=== PATIENT | male | born 2000 | race Caucasian/White ===

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

== ENCOUNTER 2022-04-28 21:31 | Emergency (ER) | payer SELFPAY ==
[2022-04-28 21:37] VITALS: BP 116/67; PULSE 77; RESP 17; TEMP 36.5; O2SAT 97
--- NOTE | 2022-04-28 21:51 | ED.GENADUL_ITS ---
Discharge Plan Disposition Patient Disposition: HOME Condition: Stable Discharge Details Clinical Impression: Rash Primary Care Provider: Unknown,Unknown ED Provider: Isauro Schofield Home Meds and New Rx's Prescriptions: New prednisone 20 mg tablet 60 mg PO DAILY 4 Days Qty: 12 0RF clindamycin HCl 150 mg capsule 450 mg PO TID 7 Days Qty: 63 0RF Continued ibuprofen 200 mg Tablet 400 mg PO QID PRN Discharge Instructions Additional Instructions: You are being treated for a skin infection with clindamycin and to decrease the inflammation you are being prescribed prednisone if not better within 5 days have the rash evaluated again You can take benadryl as needed for itching, follow dosing instructions on packaging. if you feel more ill, have severe worsening pain or fevers return to the emergency department Medical Decision Making 22 yo male with no chronic medical problems comes in with chief complaint of right arm redness and itching starting this morning. He denies any trauma but does state he felt some insect bite him overnight last night. Denies ivdu, Denies fevers, chills, severe pain, states primary symptoms is itching. He has mild erythema of the posterior right hand to proximal forearm that is mildly w arm to touch, blanches and no tenderness or crepitus. Has intact sensation and rom of all joints. Unclear etiology for rash, could be dermatitis but also concern for cellulitis. No fluctuance to suggest abscess and no findings such a severe pain or crepitus to suggest nec fasc. I recommended that we obtain labs and cultures but pt is hesitant to have blood work and wants time to decide. He has decision making capacity and understands why we would want to obtain the labs to screen for serious bacterial illness. labs reassuring against serious bacerial illness, normal wbc crp and esr. Will treat as possible cellulitis though I suspect dermatitis, will start on clindamcyin due to amoxicillin allergy and also prednisone, advised to f/u with pcp if not improving and return precautions given Differential Diagnosis Differential Diagnosis: cellulitis, dermatitis Lab Data Lab results reviewed: Yes I reviewed the patient's lab results. HPI General Mode of arrival: ambulatory . Date/Time Provider Initiated Documentation: 04/28/22 21:40 . Limitations to Documentation: no limitations . Information obtained by: patient . History of Present Illness 22 year old M presents to the emergency department with the chief complaint of right arm redness and itching, described as moderate, Patient started experiencing this hour(s) (12) and it has been constant. No relieving factors improve symptom(s), No exacerbating factors reported . Patient notes no other symptoms.. Patient did receive the following treatments prior to arrival, none Related Data Home Medications Medication Instructions Recorded Confirmed ibuprofen 200 mg tablet 400 mg PO QID PRN 09/22/18 09/22/18 clindamycin HCl 150 mg capsule 450 mg PO TID 7 days #63 caps 04/28/22 prednisone 20 mg tablet 60 mg PO DAILY 4 days #12 tabs 04/28/22 Previous Rx's Medication Instructions Recorded clindamycin HCl 150 mg capsule 450 mg PO TID 7 days #63 caps 04/28/22 prednisone 20 mg tablet 60 mg PO DAILY 4 days #12 tabs 04/28/22 Allergies Allergy/AdvReac Type Severity Reaction Status Date / Time amoxicillin Allergy Intermediate Skin Rash Unverified 04/28/22 21:44 sunscreen AdvReac Mild Hives Uncoded 04/28/22 21:42 General Stated Complaint: Cellulitis LAURA: 3 Review of Systems All systems reviewed & are unremarkable except as noted in HPI and below Constitutional Constitutional: Denies chills, Denies fever(s) and Denies weakness Cardiovascular Cardiovascular: Denies chest pain and Denies dyspnea Respiratory Respiratory: Denies cough and Denies dyspnea Gastrointestinal Gastrointestinal: Denies abdominal pain, Denies nausea and Denies vomiting Musculoskeletal Musculoskeletal: Denies joint swelling Neurologic Neurologic: Denies weakness PFSH All Active Problems (Updated 04/28/22 @ 22:29 by Isauro Schofield MD) Rash (Acute) Medical History (Updated 04/28/22 @ 22:29 by Isauro Schofield MD) Allergy to amoxicillin Smoker in home outside, away from kids Surgical History Circumcision Fracture, Open Treatment (08/21/17) Ring finger- right hand Family History Mother Healthy adult on routine physical examination Father No problems noted. Brother Trisomy 21 Other Heart disease MGM, MGF Social History Smoking/Tobacco Use Status: Never Smoking risk assessment performed?: Yes Alcohol Intake: never Drug use: Never Substance use type: former substance user Do you feel safe at home: Yes Do you feel safe in your relationship?: Yes Exam Const General: no acute distress Orientation: alert HENMT Head: normal to inspection Ears: external ears normal General nose exam: external nose normal Mouth: moist mucous membranes Eyes General: appearance normal, both eyes and all related structures Neck Neck: normal visual inspection Resp Effort & Inspection: normal respiratory effort and able to speak in complete sentences Cardio Rate: regular rate Skin General skin exam: erythema Neuro General: patient alert and patient oriented x3 Extrem General: full ROM and capillary refill normal Psych Mental Status: mental status grossly normal Course Vital Signs Vital signs: Vital Signs Temperature 36.5 C 04/28/22 21:37 Pulse 77 04/28/22 21:37 Respiratory Rate 17 04/28/22 21:37 Blood Pressure 116/67 04/28/22 21:37 Pulse Oximetry 97 04/28/22 21:37 Temperature 36.5 C 04/28/22 21:37 Temperature Source Skin 04/28/22 21:37 Pulse 77 04/28/22 21:37 Respiratory Rate 17 04/28/22 21:37 Blood Pressure 116/67 04/28/22 21:37 Blood Pressure Position Sitting 04/28/22 21:37 Pulse Oximetry 97 04/28/22 21:37 Oxygen Delivery Method Room Air 04/28/22 21:37 Oxygen Flow Rate 0 04/28/22 21:37 Pain Level 7 04/28/22 21:37
[2022-04-28 22:16] LABS: Abs Immature Grans 0.02 10^3/uL (0.0-0.06); Absolute Basophil Count 0.03 10^3/uL (0.0-0.2); Absolute Lymphocyte Count 2.13 10^3/uL (1.2-3.4); Absolute Monocyte Count 0.71 10^3/uL (0.1-0.8); Absolute Neutrophil Count 4.86 10^3/uL (1.2-6.7); Basophils % 0.4; Eosinophils % 2.5; HCT 42.1 % (40.0-50.0); HGB 14.3 g/dL (13.5-17.5); Immature Grans % 0.3; Lymphocytes % 26.8; MCH 28.7 pg (27.0-33.0); MCV 85 fL (80-95); MPV 9.6 fL (8.0-11.0); Monocytes % 8.9; Neutrophils % 61.1; Platelet Count 241 10^3/uL (130-400); RBC 4.98 10^6/uL (4.36-5.78); RDW 11.5 % (11.8-14.1); RDW-SD 35.1 fL; WBC 7.95 10^3/uL (4.4-10.8)
[2022-04-28 22:20] LABS: ESR 1 mm/hr (0-15)
[2022-04-28 22:31] LABS: ALT 30 U/L (16-63); AST 16 U/L (15-37); Albumin 4.2 g/dL (3.4-5.0); Alkaline Phosphatase 84 U/L (46-116); Anion Gap 10.9 mmol/L (3-11); BUN 17 mg/dL (7-18); Bilirubin, Total 0.5 mg/dL (0.2-1.0); C-Reactive Protein 0.14 mg/dL (0.0-0.3); CO2 24.1 mmol/L (21.0-32.0); CREATININE 0.8 mg/dL (0.70-1.30); Calcium 8.8 mg/dL (8.5-10.1); Chloride 105 mmol/L (98-107); Glucose 123 mg/dL (74-106); Potassium 3.4 mmol/L (3.5-5.1); Sodium 140 mmol/L (136-145); Total Protein 7.4 g/dL (6.4-8.2)
[2022-04-28] MEDS: predniSONE 20 MG TAB 60 MG PO (22:58)
[2022-04-28] MEDS: Clindamycin 150 MG CAP 450 MG PO (22:58)
== END 2022-04-28 22:57 | disposition home or self-care (01) ==
PROVIDERS: Emergency Provider Emergency Medicine
DX: R21 Rash and other nonspecific skin eruption (principal)
CPT/HCPCS: 80053; 85652; 99283; 85025; 86140; J7512

== ENCOUNTER 2023-03-17 15:47 | Emergency (ER) | payer OTHER, SELFPAY ==
--- NOTE | 2023-03-17 15:45 | DI.RAD_ITS ---
Exam(s) XR FINGER RT LITTLE EXAM: XR FINGER RT LITTLE CLINICAL HISTORY: pain s/p hitting it in football. TECHNIQUE: 2D digital imaging was performed. COMPARISON: No exams were available for comparison FINDINGS: 3 views There is a fracture at the midshaft level of the distal phalanx of the 5th finger. There is mild vol ar angulation of the distal fragment. No other fractures identified. No radiopaque foreign body. N o osseous lesions. IMPRESSION: Fracture in the distal phalanx with mild volar angulation of the distal fragment. DATA REPOSITORY: RADIATION DOSE DELIVERED:
[2023-03-17 15:48] VITALS: BP 122/80; PULSE 80; RESP 18; TEMP 36.8; O2SAT 99
--- NOTE | 2023-03-17 16:03 | ED.GENADUL_ITS ---
Discharge Plan Disposition Patient Disposition: Home Condition: Stable Discharge Details Clinical Impression: Fracture of phalanx of right little finger Primary Care Provider: Unknown,Unknown ED Provider: Isauro Schofield Home Meds and New Rx's Prescriptions: New cephalexin 500 mg tablet 500 mg PO TID 5 Days Qty: 15 0RF Continued ibuprofen 200 mg Tablet 400 mg PO QID PRN Discharge Instructions Instructions: Finger Fracture (ED) Additional Instructions: call orthopedics Saturday to arrange for a follow up appointment if you develop severe worsening pain, fevers, or feel more ill return to the emergency department Referrals: Manolo Mckeon MD [ [facility] STAFF PHYSICIAN] - Medical Decision Making 23 yo male comes in with a right pinky injury after he went to grab another player's flag in flat football this morning and fell on his right hand, no loc and did not strike his head. He had bleeding to the right distal pinky just proximal to the nail and has pain here so came in for an eval. He has 2mm skin avulsion just proximal to the right pinky nail bed without bleeding currently. HE has tenderness to the dip joint, is able to fully flex at the dip pip and mcp joint, limited extension at the dip joint which he feels is due to pain, cap refill intact. Suspect contusion vs sprain, will obtain xrays to evaluate for fracture imaging shows distal pinky fracture, pt stable, no visible bone on exam but with the skin avulsion concern for open fracture, I copiously cleaned the wound and covered with skin adhesive, will place on cephalexin and patient was put in finger splint. Will have him f/u with ortho, return precautions given Differential Diagnosis Differential Diagnosis: sprain, strain, avulsion Imaging Data Radiologic Study: Attestation: I personally reviewed and interpreted this imaging study as follows: Imaging: X-Ray Radiologist's impression: PROCEDURE INFORMATION: Exam: XR Left Finger(s) Exam date and time: 03/17/2023 4:18 PM Age: 23 years old Clinical indication: Injury or trauma; Other: Pain S/P hitting it in football; Fracture, traumatic injury; Closed fracture; Right; Little finger TECHNIQUE: Imaging protocol: Radiologic exam of the left fingers. Views: Minimum 2 views. COMPARISON: No relevant prior studies available. FINDINGS: Bones/joints: There is a slightly angled slightly comminuted fracture of the distal tuft of the 5th digit. There is mild dorsal distraction. It is uncertain if there is nailbed involvement. There is no significant impaction. Soft tissues: Normal. IMPRESSION: Slightly angled distal phalangeal tuft fracture 5th digit. HPI General Mode of arrival: ambulatory . Date/Time Provider Initiated Documentation: 03/17/23 15:53 . Limitations to Documentation: no limitations . Information obtained by: patient . History of Present Illness 23 year old M presents to the emergency department with the chief complaint of right pinky injury, described as moderate, Patient started experiencing this hour(s) (5) and it has been constant. No relieving factors improve symptom(s), No exacerbating factors reported . Patient notes no other symptoms.. Related Data Home Medications Medication Instructions Recorded Confirmed ibuprofen 200 mg tablet 400 mg PO QID PRN 09/22/18 09/22/18 cephalexin 500 mg tablet 500 mg PO TID 5 days #15 tabs 03/17/23 Previous Rx's Medication Instructions Recorded cephalexin 500 mg tablet 500 mg PO TID 5 days #15 tabs 03/17/23 Allergies Allergy/AdvReac Type Severity Reaction Status Date / Time amoxicillin Allergy Intermediate Skin Rash Unverified 04/28/22 21:44 sunscreen AdvReac Mild Hives Uncoded 04/28/22 21:42 General Stated Complaint: Laceration LAURA: 4 Review of Systems All systems reviewed & are unremarkable except as noted in HPI and below Constitutional Constitutional: Denies chills, Denies fever(s) and Denies weakness Cardiovascular Cardiovascular: Denies chest pain and Denies dyspnea Respiratory Respiratory: Denies cough and Denies dyspnea Gastrointestinal Gastrointestinal: Denies abdominal pain, Denies nausea and Denies vomiting Integumentary/Breasts Skin/Breast: Denies rash Neurologic Neurologic: Denies weakness PFSH All Active Problems (Updated 03/17/23 @ 16:40 by Isauro Schofield MD) Fracture of phalanx of right little finger (Acute) Medical History (Updated 03/17/23 @ 16:40 by Isauro Schofield MD) Allergy to amoxicillin Smoker in home outside, away from kids Surgical History Circumcision Fracture, Open Treatment (08/21/17) Ring finger- right hand Family History Mother Healthy adult on routine physical examination Father No problems noted. Brother Trisomy 21 Other Heart disease MGM, MGF Social History Smoking/Tobacco Use Status: Current every day Tobacco Type: e-cigarettes Smoking risk assessment performed?: Yes Alcohol Intake: current Alcohol Intake frequency: a few times a month Drug use: Never Substance use type: former substance user Do you feel safe at home: Yes Do you feel safe in your relationship?: Yes Exam Const General: no acute distress Orientation: alert HENMT Head: normal to inspection Ears: external ears normal General nose exam: external nose normal Mouth: moist mucous membranes Eyes General: appearance normal, both eyes and all related structures Neck Neck: normal visual inspection Resp Effort & Inspection: normal respiratory effort and able to speak in complete sentences Cardio Rate: regular rate Skin General skin exam: no rashes or lesions noted Neuro General: patient alert and patient oriented x3 Extrem General: capillary refill normal Psych Mental Status: mental status grossly normal Course Vital Signs Vital signs: Vital Signs Temperature 36.8 C 03/17/23 15:48 Pulse 80 03/17/23 15:48 Respiratory Rate 18 03/17/23 15:48 Blood Pressure 122/80 03/17/23 15:48 Pulse Oximetry 99 03/17/23 15:48 Temperature 36.8 C 03/17/23 15:48 Temperature Source Oral 03/17/23 15:48 Pulse 80 03/17/23 15:48 Respiratory Rate 18 03/17/23 15:48 Respiratory Effort Normal, Non-Labored 03/17/23 15:53 Blood Pressure 122/80 03/17/23 15:48 Blood Pressure Position Sitting 03/17/23 15:48 Pulse Oximetry 99 03/17/23 15:48 Oxygen Delivery Method Room Air 03/17/23 15:48 Oxygen Flow Rate 0 03/17/23 15:48
--- NOTE | 2023-03-17 16:29 | DI.VRAD_ITS ---
PROCEDURE INFORMATION: Exam: XR Left Finger(s) Exam date and time: 03/17/2023 4:18 PM Age: 23 years old Clinical indication: Injury or trauma; Other: Pain S/P hitting it in football; Fracture, traumatic injury; Closed fracture; Right; Little finger TECHNIQUE: Imaging protocol: Radiologic exam of the left fingers. Views: Minimum 2 views. COMPARISON: No relevant prior studies available. FINDINGS: Bones/joints: There is a slightly angled slightly comminuted fracture of the distal tuft of the 5th digit. There is mild dorsal distraction. It is uncertain if there is nailbed involvement. There is no significant impaction. Soft tissues: Normal. IMPRESSION: Slightly angled distal phalangeal tuft fracture 5th digit. Dictated and Authenticated by: Purnima Marin MD. Ordering:SEVEN Box MD
[2023-03-17] MEDS: Cephalexin 500 MG CAP PO (16:50)
== END 2023-03-17 16:56 | disposition home or self-care (01) ==
PROVIDERS: Emergency Provider Emergency Medicine
DX: S62.636A Displaced fracture of distal phalanx of right little finger, initial encounter for closed fracture (principal); Y99.8 Other external cause status; Y93.69 Activity, other involving other sports and athletics played as a team or group
CPT/HCPCS: 29130; 99283; 73140

== ENCOUNTER 2023-03-27 08:12 | Outpatient (CLI) | payer OTHER, SELFPAY ==
--- NOTE | 2023-03-27 08:00 | DI.RAD_ITS ---
Exam(s) XR FINGER RT LITTLE EXAM: XR FINGER RT LITTLE CLINICAL HISTORY: finger f/u. TECHNIQUE: 2D digital imaging was performed of the right finger. Three views were obtained. PA/AP, oblique, and lateral views were obtained. COMPARISON: CR,XR XR FINGER RT LITTLE from 03/17/2023 FINDINGS: BONES: There is again seen a fracture through the mid distal phalanx of the right little finger. The re has been improved alignment with only mild anterior angulation of the fracture noted. No bony uriel tructive lesion is seen. JOINTS: No dislocation present. SOFT TISSUE: Normal. IMPRESSION: Mild anterior angulation of the fracture involving the distal phalanx of the right little finger. DATA REPOSITORY: RADIATION DOSE DELIVERED:
== END 2023-03-27 08:13 | disposition home or self-care (01) ==
LOC: DIORS 08:13
PROVIDERS: Visit Provider Student in an Organized Health Care Education/Training Program
DX: S62.636D Displaced fracture of distal phalanx of right little finger, subsequent encounter for fracture with routine healing (principal); X58.XXXD Exposure to other specified factors, subsequent encounter
CPT/HCPCS: 73140

== ENCOUNTER 2023-04-24 10:33 | Outpatient (CLI) | payer OTHER, SELFPAY ==
--- NOTE | 2023-04-24 09:30 | DI.RAD_ITS ---
Exam(s) XR FINGER RT LITTLE EXAM: XR FINGER RT LITTLE CLINICAL HISTORY: F/U FRACTURE. TECHNIQUE: 2D digital imaging was performed. Three views. COMPARISON: CR XR FINGER RT LITTLE from 03/27/2023 FINDINGS: There has been no change in the alignment of the fracture of the distal phalanx. No new abnormalitie s. DATA REPOSITORY: RADIATION DOSE DELIVERED:
== END 2023-04-24 10:34 | disposition home or self-care (01) ==
LOC: DIORS 10:33
PROVIDERS: Visit Provider Student in an Organized Health Care Education/Training Program
DX: S62.636D Displaced fracture of distal phalanx of right little finger, subsequent encounter for fracture with routine healing (principal); X58.XXXD Exposure to other specified factors, subsequent encounter
CPT/HCPCS: 73140

== ENCOUNTER 2025-07-23 07:02 | Day surgery (SDC) | payer OTHER, SELFPAY ==
[2025-07-23 07:05] VITALS: BP 154/88; PULSE 86; RESP 20; TEMP 36.4; O2SAT 98
--- NOTE | 2025-07-23 07:24 | ANES.PREOP_ITS ---
General Info Date of Service Date Performed: 07/23/25 Height: 5 ft 10 in Weight: 97.3 kg Body Mass Index (BMI): 30.7 Surgical Procedure: Operation Date: 07/23/25 08:35 Proposed Procedure Side Surgeon p Gastroscopy Mary Burgess MD Meds Allergies and Home Medications Allergies Allergy/AdvReac Type Severity Reaction Status Date / Time amoxicillin Allergy Intermediate Skin Rash Verified 07/23/25 07:17 Home Medication ?Medication ?Instructions ?Recorded melatonin 5 mg tablet 3 mg PO HS 06/30/25 omeprazole 40 mg capsule,delayed 40 mg PO DAILY #90 ca ps 07/01/25 release sucralfate 1 gram tablet (Carafate) 1 g PO TID #120 ta bs 07/01/25 Current Visit Medications: Current Medications Generic Name Dose Route Start Last Admin Trade Name Freq PRN Reason Stop Dose Admin Ringer's Solution 1,000 mls @ 80 mls/hr 07/23/25 06:00 IV 07/23/25 23:59 INFUSION DIEUDONNE IV Miscellaneous Supplies 1 each 07/23/25 06:00 Iv Access IV 07/23/25 23:59 DIRECTED DIEUDONNE Sodium Chloride 0 ml 07/23/25 06:00 Normal Saline Flush 10 Ml Syr IV 07/23/25 23:59 PRN PRN Sodium Chloride 0 ml 07/23/25 06:00 Normal Saline 10 Ml Vial IJ 07/23/25 23:59 DIRECTED PRN Sterile Water 0 ml 07/23/25 06:00 Water,Injection,Sterile 10 Ml Vial IJ 07/23/25 23:59 DIRECTED PRN PFSH Active Problems Active Problems: Problem Status Onset Code GERD (gastroesophageal reflux disease) Chronic K21.9 Insomnia Chronic G47.00 Surgical History Surgical History S/P ORIF (open reduction internal fixation) fracture (08/21/17) for right ring finger fracture Tobacco Smoking/Tobacco Use Status: Former Tobacco Use Passive smoking exposure: Yes Second hand exposure: Yes Alcohol Alcohol Intake: current Alcohol intake frequency: a few times a month Alcohol type: beer and hard liquor Substance Use Substance use: Never Substance use type: does not use Vital Signs and Lab Results Vital Signs Most Recent Vital Signs in EMR: Most Recent Vital Signs Temp Pulse Resp BP Pulse Ox 36.4 C L 86 20 154/88 H 98 07/23/25 07:05 07/23/25 07:05 07/23/25 07:05 07/23/25 07:05 07/23/25 07:05 Anesthesia Assessment and Plan Anesthesia History Personal History: No History of Anesthesia Complications Family History: No Family History of Anesthesia Complications Implantable Cardiac Device Does patient have a Pacemaker or an ICD?: No
[2025-07-23] MEDS: Lactated Ringers 1,000 ML 80 ML IV (07:27)
--- NOTE | 2025-07-23 07:49 | ANES.PREOP_ITS ---
General Info Date of Service Date Performed: 07/23/25 Height: 5 ft 10 in Weight: 97.3 kg Body Mass Index (BMI): 30.7 Surgical Procedure: Operation Date: 07/23/25 08:35 Proposed Procedure Side Surgeon p Gastroscopy Mary Burgess MD Meds Allergies and Home Medications Allergies Allergy/AdvReac Type Severity Reaction Status Date / Time amoxicillin Allergy Intermediate Skin Rash Verified 07/23/25 07:17 Home Medication ?Medication ?Instructions ?Recorded melatonin 5 mg tablet 3 mg PO HS 06/30/25 omeprazole 40 mg capsule,delayed 40 mg PO DAILY #90 ca ps 07/01/25 release sucralfate 1 gram tablet (Carafate) 1 g PO TID #120 ta bs 07/01/25 Current Visit Medications: Current Medications Generic Name Dose Route Start Last Admin Trade Name Freq PRN Reason Stop Dose Admin Ringer's Solution 1,000 mls @ 80 mls/hr 07/23/25 06:00 07/23/25 07:27 IV 07/23/25 23:59 80 mls/hr INFUSION DIEUDONNE Administration IV Miscellaneous Supplies 1 each 07/23/25 06:00 Iv Access IV 07/23/25 23:59 DIRECTED DIEUDONNE Sodium Chloride 0 ml 07/23/25 06:00 Normal Saline Flush 10 Ml Syr IV 07/23/25 23:59 PRN PRN Sodium Chloride 0 ml 07/23/25 06:00 Normal Saline 10 Ml Vial IJ 07/23/25 23:59 DIRECTED PRN Sterile Water 0 ml 07/23/25 06:00 Water,Injection,Sterile 10 Ml Vial IJ 07/23/25 23:59 DIRECTED PRN PFSH Active Problems Active Problems: Problem Status Onset Code GERD (gastroesophageal reflux disease) Chronic K21.9 Insomnia Chronic G47.00 Surgical History Surgical History S/P ORIF (open reduction internal fixation) fracture (08/21/17) for right ring finger fracture Tobacco Smoking/Tobacco Use Status: Former Tobacco Use Passive smoking exposure: Yes Second hand exposure: Yes Alcohol Alcohol Intake: current Alcohol intake frequency: a few times a month Alcohol type: beer and hard liquor Substance Use Substance use: Never Substance use type: does not use Vital Signs and Lab Results Vital Signs Most Recent Vital Signs in EMR: Most Recent Vital Signs Temp Pulse Resp BP Pulse Ox 36.4 C L 86 20 154/88 H 98 07/23/25 07:05 07/23/25 07:05 07/23/25 07:05 07/23/25 07:05 07/23/25 07:05 Anesthesia Assessment and Plan Anesthesia History Personal History: No History of Anesthesia Complications Family History: No Family History of Anesthesia Complications Exercise Tolerance Exercise Tolerance: Metabolic Equivalents>4 Pertinent Negatives Pertinent Negatives: No Symptoms of GERD Cardiac & Pulmonary Exam Cardiac Exam: Normal S1/S2 Heart Sounds Pulmonary Exam: Clear Bilateral Breath Sounds Implantable Cardiac Device Does patient have a Pacemaker or an ICD?: No Airway Exam Known Difficult Airway: No Mallampati Class: 2 Mouth Opening: Normal (> 3cm) Thyromental Distance: Greater than 3 cm Neck Range of Motion: Full ROM Neck Circumference: Normal Teeth Condition: Normal Dentition ASA Classification ASA Score: ASA 2 Emergency Case?: No NPO Status NPO Status: NPO Clears >2 hours, Solids >8 hours Anesthesia Plan Resuscitation Status: Full Code Anesthesia Technique: General Anesthesia Airway Planned: Natural Airway Monitors Used: Standard Monitors
[2025-07-23 07:50] VITALS: BMI 30.7
--- NOTE | 2025-07-23 08:18 | BOWEL_PTH ---
PATIENT: Manuel Sands LOC: [facility] U#:[id number] AGE/SX: 25/M ROOM: RE07/23/[address]: Mary Burgess : 2000 BED: DIS: 07/23/2025 SPEC #: [id number] RECD: 07/23/25 12:30 STATUS: FER ROMO #: [id number] JOLENE: 07/23/25 08:[address]: Mary Burgess DEPT: Surgical Specimen RECD BY: Priyanka Dunham ENTERED: 07/23/25 12:31 SP TYPE: Bowel OTHR DR: VINCENT Mei Tissues: 1 - BIOPSY BOWEL 2 - STOMACH BIOPSY 3 - ESOPHAGUS BIOPSY Procedures: GROSS AND MICRO LEVEL 4 Comments: [id number]
--- NOTE | 2025-07-23 08:30 | W.PM.ENDDOP ---
Date of service: 07/23/25 Time of Service: 08:30 Endoscopy Report DATE OF PROCEDURE: 07/23/25 PRE-OP DIAGNOSIS: GERD POST-OP DIAGNOSIS: same PROCEDURE: Upper endoscopy with biopsy. SURGEON: Mary Burgess ANESTHESIA TYPE: General:No Airway ESTIMATED BLOOD LOSS: 2 PATHOLOGY: other (Duodenum, Antrum, GE junction ) COMPLICATIONS: None DISPOSITION: PACU INDICATIONS: Patient is a 25 yo male who presented with severe reflux symptoms uncontrolled on his current medication. FINDINGS: Normal upper endoscopy. Routine biopsy performed at duodenum, antrum and GE junction. PROCEDURE DESCRIPTION: After adequate sedation, the upper endoscope was inserted and advanced in the duodenum under direct visualization. The scope was withdrawn and the mucosa inspected. The duodenum appeared normal and a cold forcep biopsy was performed. The stomach was normal with no evidence of ulcerations or erosions. ?The antrum area was biopsied and also checked for H. pylori.? Retroflexion view in the stomach was normal. At the lower esophagus Z line area, this was inspected and noted to be normal. A cold forcep biopsy of the GE junction was performed. No evidence of Horton?s esophagus or strictures. Otherwise, the esophagus was normal. The scope was completely withdrawn from the patient. The patient tolerated the procedure well with no immediate complications.
[2025-07-23 08:32] VITALS: BP 142/90; PULSE 90; RESP 16; TEMP 36.2; O2SAT 95
--- NOTE | 2025-07-23 08:42 | W.ANESPOSTOP ---
Postoperative Evaluation Date, Time and Location Date Performed: 07/23/25 Time Performed: 08:43 Patient Location: Day Surgery Unit Vital Signs Most Recent Imported Vital Signs: Most Recent Vital Signs Temp Pulse Resp BP Pulse Ox 36.2 C L 90 16 142/90 H 95 07/23/25 08:32 07/23/25 08:32 07/23/25 08:32 07/23/25 08:32 07/23/25 08:32 Pain Score Most Recent Pain Score: Most Recent Pain Score Pain Level 0 07/23/25 08:32 Assessment Mental Status: Awake (Alert & Oriented to Patient Baseline) Airway and Respiratory Function: Patent airway with normal (patient baseline) respiratory exam Cardiovascular Function: Hemodynamically Stable Hydration Status: Adequately Hydrated Nausea & Vomiting: No Nausea or Vomiting Pain: Pt. Denies Any Pain Peripheral Nerve Block: Patient did not receive a nerve block
[2025-07-23 09:04] VITALS: BP 123/80; PULSE 74; RESP 16; TEMP 36.4; O2SAT 98
== END 2025-07-23 09:11 | disposition home or self-care (01) ==
PROVIDERS: PCP Nurse Practitioner Family; Visit Provider Student in an Organized Health Care Education/Training Program
PROC: 0DJ68ZZ Inspection of Stomach, Via Natural or Artificial Opening Endoscopic (ICD-10-PCS; CPT 43235; principal; 2025-07-23 08:30)
DX: K21.9 Gastro-esophageal reflux disease without esophagitis (principal); B96.81 Helicobacter pylori [H. pylori] as the cause of diseases classified elsewhere; K22.89 Other specified disease of esophagus
CPT/HCPCS: 43239; 88305; J2003; J2704